=== PATIENT | male | born 1970 | race Native Hawaiian/Other Pacific Islander ===

== ENCOUNTER 2017-08-17 14:56 | Outpatient (CLI) | payer OTHER ==
[~2017-08-17 14:56] MED LIST: GLIP5TAB65 PO; LEVOTHROID50 MCG PO; LISI5TAB10 OR; METFORMIN ER1000 MG PO; SIMV20TA2 PO
[2017-08-17 15:14] LABS: PLATELET COUNT 258 K/uL (142-355)
[2017-08-17 15:32] LABS: POTASSIUM 3.8 mmol/L (3.6-5.2); SODIUM 133 mmol/L (136-145)
== END 2017-08-17 16:00 | disposition home or self-care (01) ==
LOC: LABW 14:56
PROVIDERS: Otolaryngology
DX: H65.22 Chronic serous otitis media, left ear (principal)
CPT/HCPCS: 36415; 80048; 85027

== ENCOUNTER 2018-04-25 15:10 | Outpatient (CLI) | payer OTHER ==
[2018-04-25 15:33] LABS: POTASSIUM 4.6 mmol/L (3.6-5.2)
[2018-04-25 15:36] LABS: PLATELET COUNT 267 K/uL (142-355)
== END 2018-04-25 22:51 | disposition home or self-care (01) ==
LOC: LABW 15:10
PROVIDERS: Internal Medicine
DX: R10.32 Left lower quadrant pain (principal)
CPT/HCPCS: 36415; 80053; 81000; 82150; 83690; 85027

== ENCOUNTER 2018-06-22 09:47 | Outpatient (CLI) | payer OTHER | END 2018-06-22 23:14 | disposition home or self-care (01) | LOC: LABW 09:47 | DX: D75.89 Other specified diseases of blood and blood-forming organs (principal); E53.8 Deficiency of other specified B group vitamins | CPT/HCPCS: 36415; 82607; 82747 ==

== ENCOUNTER 2019-03-22 14:45 | Emergency (ER) | payer OTHER ==
[~2019-03-22] VITALS: Ht 160 cm; Wt 68.0 kg
[2019-03-22 16:04] LABS: PLATELET COUNT 266 K/uL (142-355)
[2019-03-22 16:05] LABS: POTASSIUM 3.8 mmol/L (3.6-5.2)
[2019-03-22] MEDS ORDERED: COZAAR25 MG PO (16:28)
[2019-03-22] MEDS ORDERED: METFORMIN HCL500 MG PO (16:29)
[2019-03-22 17:35] VITALS: BP 124/68; TEMP 97.6
== END 2019-03-22 17:35 | disposition home or self-care (01) ==
LOC: ED 14:45
PROVIDERS: Emergency Medicine
DX: N13.5 Crossing vessel and stricture of ureter without hydronephrosis (principal)
CPT/HCPCS: 36415; 80053; 81000; 85027; 96374; 99284; J1885

== ENCOUNTER 2019-08-20 00:44 | Emergency (ER) | payer OTHER ==
[~2019-08-20] VITALS: Ht 160 cm; Wt 68.0 kg
[~2019-08-20 00:44] MED LIST changes: +COZAAR25 MG PO; +METFORMIN HCL500 MG PO
[2019-08-20 01:25] LABS: PLATELET COUNT 308 K/uL (142-355)
[2019-08-20 01:38] LABS: POTASSIUM 4.1 mmol/L (3.6-5.2)
[2019-08-20 02:00] LABS: PARTIAL THROMBOPLASTIN TIME 23.9 SECONDS (24.5-33.6)
[2019-08-20 02:23] VITALS: BP 144/72; TEMP 97.2
== END 2019-08-20 02:23 | disposition home or self-care (01) ==
LOC: ED 00:44
PROVIDERS: Hospitalist
DX: J40 Bronchitis, not specified as acute or chronic (principal); R25.2 Cramp and spasm; R06.02 Shortness of breath
CPT/HCPCS: 36415; 80048; 83735; 85027; 85610; 85730; 87502; 87651; 94664; 96372; 99283; J0696

== ENCOUNTER 2019-08-31 09:30 | Outpatient (CLI) | payer OTHER ==
[2019-08-31 09:54] LABS: PLATELET COUNT 275 K/uL (142-355)
[2019-08-31 10:20] LABS: POTASSIUM 4.3 mmol/L (3.6-5.2)
== END 2019-08-31 21:28 | disposition home or self-care (01) ==
LOC: LABW 09:30
PROVIDERS: Internal Medicine
DX: E11.9 Type 2 diabetes mellitus without complications (principal); E03.8 Other specified hypothyroidism; Z12.5 Encounter for screening for malignant neoplasm of prostate; N40.0 Benign prostatic hyperplasia without lower urinary tract symptoms
CPT/HCPCS: 36415; 80053; 80061; 82043; 82570; 83036; 83735; 84153; 84439; 84443; 85027